=== PATIENT | male | born 1965 | race African-American/Black ===

== ENCOUNTER 2019-10-09 06:23 | Emergency (ER) | payer SELFPAY ==
[~2019-10-09] VITALS: Ht 175.3 cm; Wt 79.4 kg
--- NOTE | 2019-10-09 06:29 | NUR ---
ED Nurse Note: pt presents to ED via [id number] for EtOH. per EMS, pt was in the middle of the street passed out and smells heavily of alcohol, pt is unsure about how much he consumed but does report that he fell. pt did not experience LOC or head trauma, or any pain at this time. pt is AOx3 and has had many episodes of vomiting and appears to have urinated on himself. upon inspection, pt appears to be dirty and disheveled with vomit on his clothes. he smells strongly of alcohol and vomit. responds to name and questions when asked Addendum: 10/09/19 at 0634 by MARANDA pt brought in by [id number]
[2019-10-09 06:34] VITALS: BP 127/67
--- NOTE | 2019-10-09 07:09 | NUR ---
HAND-OFF: Report given to HUGH Mcmahan.
--- NOTE | 2019-10-09 07:15 | NUR ---
ED Nurse Note: Report received from HUGH Santamaria. Pt is sleeping in bed. Respirations even and unlabored on room air.
[2019-10-09 08:20] VITALS: BP 125/64
[2019-10-09 09:10] VITALS: BP 122/86
--- NOTE | 2019-10-09 09:10 | NUR ---
ER DISCHARGE NOTE: Patient is cleared to be discharged per ERMD, pt is aox4, on room air, with stable vital signs. pt was given dc instructions, pt was able to verbalize understanding, pt id band removed. pt is able to ambulate with steady gait. pt took all belongings. Pt was given food; he was offered clothing and resources about places to go, but refused both. Pt signed the paperwork and took the packet of resources with him, but refused to disclose where he would be going upon DC.
--- NOTE | 2019-10-09 10:55 | Emergency Room Report ---
History of Present Illness General Chief Complaint: Alcohol Intoxication Source: Patient Present Illness HPI Patient presents by paramedics with reports of sleeping on the street Patient had also reported increased nausea Patient does admit to drinking alcohol on a regular basis denies any headache denies any chest pain Denies any fall or trauma Patient reports that he was sleeping when he was picked up by paramedics Denies any focal weakness or other medical complaints Allergies: Coded Allergies: No Known Allergies (Unverified , 10/09/19) Patient History Past Medical History: see triage record Reviewed Nursing Documentation: PMH: Agreed; PSxH: Agreed Nursing Documentation-PMH Past Medical History: No Stated History Review of Systems All Other Systems: negative except mentioned in HPI Physical Exam Vital Signs Date Time Temp Pulse Resp B/P (MAP) Pulse Ox O2 Delivery O2 Flow Rate FiO2 10/09/19 06:26 97.9 92 16 127/67 (87) 97 Room Air Sp02 EP Interpretation: reviewed, normal General Appearance: no apparent distress Head: normocephalic, atraumatic Eyes: bilateral eye PERRL, bilateral eye EOMI ENT: EOM grossly intact Neck: supple, no meningismus Respiratory: lungs clear, no respiratory distress, no retraction Cardiovascular #1: regular rate, rhythm Gastrointestinal: non tender, soft Genitourinary: no CVA tenderness Musculoskeletal: normal inspection Neurologic: alert, oriented x3 Psychiatric: normal inspection Skin: other - Patient is somewhat disheveled Lymphatic: no adenopathy Medical Decision Making Diagnostic Impression: Primary Impression: alcohol abuse ER Course Upon arrival the patient did have a vomiting episode He was provided with nausea medication However he refused any further input patient reported that he wanted to rest Patient was allowed to rest did not have any further episodes of vomiting And at this time is medically cleared for further outpatient care Last Vital Signs Date Time Temp Pulse Resp B/P (MAP) Pulse Ox O2 Delivery O2 Flow Rate FiO2 10/09/19 09:10 98.0 85 20 122/86 95 Room Air Status: improved Disposition: HOME, SELF-CARE Condition: Improved Referrals: NOT CHOSEN IPA/,REFERRING (PCP) [facility] Patient Instructions: Alcohol Abuse and Nutrition Additional Instructions: Patient is provided with the discharge instructions notified to follow up with primary doctor in the next 2-3 days otherwise return to the er with any worsening symptoms. Please note that this report is being documented using [employer] technology. This can lead to erroneous entry secondary to incorrect interpretation by the dictating instrument. Robert Campo DO Oct 09, 2019 10:55
== END 2019-10-09 09:10 | disposition home or self-care (01) ==
LOC: EDBD 06:23 → EMR 06:37
DX: F10.10 Alcohol abuse, uncomplicated (principal); Y90.9 Presence of alcohol in blood, level not specified
CPT/HCPCS: 99281

== ENCOUNTER 2019-11-15 10:09 | Emergency (ER) | payer SELFPAY ==
[~2019-11-15] VITALS: Ht 177.8 cm; Wt 74.8 kg
--- NOTE | 2019-11-15 10:47 | NUR ---
ED Nurse Note: Pt ambulated to ed c/o flu like symptoms; cough, nasal congestion, headache. pt denies travel
[2019-11-15 10:48] VITALS: BP 114/77
--- NOTE | 2019-11-15 11:10 | Emergency Room Report ---
History of Present Illness General Chief Complaint: Flu Like Symptoms Source: Patient Present Illness HPI Patient presents with complaints of cough and congestion over the past 2 days He reports some phlegm production Mild diffuse body ache Denies any neck pain or photophobia denies any chest pain Denies any rash denies any vomiting or diarrhea As the cough persisted he was concerned and came to the ER Allergies: Coded Allergies: No Known Allergies (Unverified , 10/09/19) Patient History Past Medical History: see triage record Reviewed Nursing Documentation: PMH: Agreed; PSxH: Agreed Nursing Documentation-PMH Past Medical History: No Stated History Review of Systems All Other Systems: negative except mentioned in HPI Physical Exam Vital Signs Date Time Temp Pulse Resp B/P (MAP) Pulse Ox O2 Delivery O2 Flow Rate FiO2 11/15/19 10:43 98.2 78 18 114/77 (89) 98 Room Air Sp02 EP Interpretation: reviewed, normal General Appearance: well appearing, no apparent distress Head: normocephalic, atraumatic Eyes: bilateral eye PERRL, bilateral eye EOMI ENT: hearing grossly normal, normal pharynx, TMs + canals normal, uvula midline Neck: full range of motion, supple, no meningismus, no bony tend Respiratory: lungs clear, normal breath sounds, no rhonchi, no respiratory distress, no retraction, no accessory muscle use Cardiovascular #1: normal peripheral pulses, regular rate, rhythm, no edema, no gallop, no JVD, no murmur Gastrointestinal: normal bowel sounds, non tender, soft, no mass, no organomegaly, non-distended, no guarding, no hernia, no pulsatile mass, no rebound Musculoskeletal: normal inspection Neurologic: motor strength/tone normal, door installer III-XII nml as tested, oriented x3 , sensory intact, responsive Psychiatric: mood/affect normal Skin: no rash Lymphatic: normal inspection, no adenopathy Medical Decision Making Diagnostic Impression: Primary Impression: Influenza-like symptoms ER Course Multiple differentials and consideration including but not limited to cardiac, cardiopulmonary, infectious process Patient symptoms appear to be consistent with likely URI/flu symptoms X-ray is normal Patient continues to saturate well and is hemodynamically stable And will have initial conservative outpatient trial Chest X-Ray Diagnostic Results Chest X-Ray Diagnostic Results : Chest X-Ray Ordered: Yes # of Views/Limited/Complete: 1 View Indication: Shortness of Breath EP Interpretation: Yes Interpretation: no consolidation, no effusion, no pneumothorax Impression: No acute disease Electronically Signed by: Robert Campo DO Last Vital Signs Date Time Temp Pulse Resp B/P (MAP) Pulse Ox O2 Delivery O2 Flow Rate FiO2 11/15/19 10:48 98.2 78 18 114/77 98 Room Air Status: improved Disposition: HOME, SELF-CARE Condition: Improved Scripts Guaifenesin/Dextromethorphan (Robitussin Cough-Chest Dm Liq) 237 Ml Liquid 10 ML PO Q12HR for 7 Days, ML Prov: Robert Campo DO 11/15/19 Oseltamivir Phosphate (Tamiflu) 75 Mg Capsule 75 MG ORAL TWICE A DAY for 5 Days, CAP Prov: Robert Campo DO 11/15/19 Additional Instructions: Patient is provided with the discharge instructions notified to follow up with primary doctor in the next 2-3 days otherwise return to the er with any worsening symptoms. Please note that this report is being documented using [employer] technology. This can lead to erroneous entry secondary to incorrect interpretation by the dictating instrument. Robert Campo DO Nov 15, 2019 11:10
--- NOTE | 2019-11-15 11:21 | NUR ---
ED Nurse Note: Provided patient with beverage
--- NOTE | 2019-11-15 11:22 | NUR ---
ED Nurse Note: xray at bedside
--- NOTE | 2019-11-15 11:28 | NUR ---
ED Nurse Note: xray completed
[2019-11-15] MEDS ORDERED: ROBITUSSIN COU237 M2 PO (11:37)
[2019-11-15] MEDS ORDERED: TAMIFLU75 MG ORAL (11:37)
[2019-11-15 11:47] VITALS: BP 126/79
--- NOTE | 2019-11-15 11:48 | NUR ---
ER DISCHARGE NOTE: Patient is cleared to be discharged per ERMD, pt is aox4, on room air, with stable vital signs. pt was given dc and prescription instructions, pt was able to verbalize understanding, pt id band removed. pt is able to ambulate with steady gait. pt took all belongings. pt given homeless resources and meal.
--- NOTE | 2019-11-15 12:01 | Diagnostic Imaging Report ---
Indication: Cough Technique: One view of the chest Comparison: none Findings: Metallic device projects over the cardiac apex. There is some atelectasis at the left lung base. Lungs and pleural spaces are otherwise clear. The heart size is normal. Impression: No acute process
== END 2019-11-15 11:46 | disposition home or self-care (01) ==
LOC: EMR 11:01
DX: R05 Cough (principal)
CPT/HCPCS: 71045; 99283